=== PATIENT | male | born 1990 | race Hispanic/Latino ===

== ENCOUNTER 2017-08-23 01:54 | Inpatient (IN) | payer SELFPAY ==
[~2017-08-23] VITALS: Ht 167.6 cm; Wt 0.0 kg
[~2017-08-23 01:54] MED LIST: NO; PAROXETINE20 MG PO; PHENERGAN25 MG/TAB PO
--- NOTE | 2017-08-23 02:03 | NUR ---
PATIENT AMBULATORY TO TREATMENT AREA AND TO BATHROOM FOR URINE SAMPLE. PATIENT UNDRESSED INTO9 A GOWN. AWAITING MD RIVERA.
[2017-08-23 02:27] LABS: HEMATOCRIT 43.7 % (39.0-50.0); HEMOGLOBIN 15.2 g/dl (14.0-18.0); IMMATURE GRANULOCYTES 0.4 % (0.0-1.0); MEAN CELL VOLUME 84.9 fL CALC (80.0-100.0); MEAN CORPUSCULAR HGB 29.5 pG CALC (26.0-32.0); MEAN CORPUSCULAR HGB CONC 34.8 g/L CALC (32.0-36.0); NEUT# 8.17 thou/uL (1.82-7.42); RED BLOOD COUNT 5.15 mill/uL (4.70-6.10); RED CELL DISTRI WIDTH 12.2 % (11.5-15.5); URINE BILIRUBIN - DIPSTICK NEGATIVE (NEGATIVE); URINE BLOOD DIPSTICK NEGATIVE (NEGATIVE); URINE CLARITY SLIGHT CLOUDY; URINE COLOR YELLOW; URINE GLUCOSE - DIPSTICK NEGATIVE (NEGATIVE); URINE KETONE NEGATIVE (NEGATIVE); URINE LEUK ESTERASE NEGATIVE (NEGATIVE); URINE NITRITE - DIPSTICK NEGATIVE (Negative); URINE PROTEIN - DIPSTICK NEGATIVE (NEG-TRACE); URINE UROBILINOGEN - DIPSTICK 0.2 E.U./dL (0.2)
--- NOTE | 2017-08-23 02:40 | NUR ---
PATIENT MEDICATED ORDERED. WILL MONITOR FOR EFFECT.
[2017-08-23 02:45] LABS: ALBUMIN 4.5 g/dL (3.2-5.0); ALKALINE PHOSPHATASE 148 u/l (38-126); ANION GAP 16 (6-22 (CALC)); BILIRUBIN, TOTAL 0.8 mg/dL (0.0-1.4); BUN 13 mg/dL (9-20); BUN/CREATININE RATIO 16 (12-20 (CALC)); CALCIUM 9.6 mg/dL (8.4-10.2); CARBON DIOXIDE 25 mmol/l (22-30); CHLORIDE 107 mmol/l (95-108); CREATININE 0.8 mg/dL (0.7-1.3); GFR > 60 ML/MIN (>=60 (CALC)); GFR FOR AFR.AMER. > 60 ML/MIN (>=60 (CALC)); GLUCOSE 103 mg/dL (75-110); POTASSIUM 3.9 mmol/l (3.5-5.1); SGOT/AST 44 u/l (17-59); SGPT/ALT 74 u/l (21-72); SODIUM 144 mmol/l (137-146); TOTAL PROTEIN 7.6 g/dL (6.3-8.2)
[2017-08-23 03:02] LABS: AMYLASE 1458 u/l (30-110); LIPASE 15086 u/l (23-300)
--- NOTE | 2017-08-23 03:10 | NUR ---
PATIENT STATES PAIN IS IMPROVED. RATES A 5 ON 1-10 PAIN SCALE. AWARE OF PENDING CAT SCAN.
--- NOTE | 2017-08-23 04:07 | NUR ---
MD AT BEDSIDE TO DISCUSS ALL RESULTS AND PLANS TO ADMIT TO THE HOSPITAL. SUHAIL VERBALIZES UNDERSTANDING.
--- NOTE | 2017-08-23 04:34 | NUR ---
ADDITIONAL IVF HUNG. PATIENT STATES PAIN HAS RETURNED. AWARE OF PLANS TO ADMIT. AWAITING MED ORDERS TO BE VERIFIED AND ROOM ASSIGNMENT.
--- NOTE | 2017-08-23 04:58 | NUR ---
PATIENT MEDICATED ADDITIONALLY FOR PAIN. REPORT ATTEMPTED, NURSE UNAVAILABLE. WILL CALL BACK.
--- NOTE | 2017-08-23 05:09 | NUR ---
REPORT GIVEN TO OMKAR. PATIENT READIED FOR TRANSPORT TO FLOOR, ON MONITOR, WITH RN.
--- NOTE | 2017-08-23 05:15 | NUR ---
PT TO ROOM 272 VIA STRETCHER ACCOMPANIED BY TAYLA CRUZ.
--- NOTE | 2017-08-23 05:20 | NUR ---
PT SITTING UP IN BED. RESP ARE EVEN AND UNLABORED. NO DISTRESS NOTED. PT IS ALERT AND ORIENTED X3. PERRLA. LUNGS ARE CLEAR. HR REGULAR. TELE IN PLACE. NO EDEMA NOTED. PULSES PALPABLE THROUGHOUT. BS ACTIVE. PT REPORTS A BM YESTERDAY EVENING THAT WAS NORMAL. #20 LAC WITH 2ND LITER OF BOLUS FLUIDS GOING. 3RD LITER STILL PENDING. NO REDNESS OR EDEMA NOTED AT IV SITE. WILL CONTINUE TO MONITOR.
--- NOTE | 2017-08-23 05:49 | NUR ---
3RD LITER OF BOLUS FLUIDS INFUSING NOW. NO REDNESS OR EDEMA NOTED AT SITE. WILL CONTINUE TO MONITOR
--- NOTE | 2017-08-23 07:34 | NUR ---
PT.IN BED AWAKE, C/O 5/10 PAIN, PT.WAS TREATED W/DILAUDID AT 0455. DENIES ANY FURTHER NEEDS AT THIS TIME. V/S ASSESSED AND NEW FLUIDS ADMINISTERED. FAMILY AT BS ALONG W/CALL LIGHT AND BST.
[2017-08-23 07:36] VITALS: BP 104/69
--- NOTE | 2017-08-23 10:06 | NUR ---
PT.ASSESSED AND MEDICATED FOR PAIN AND AM MEDICATIONS. PT.REPORTS FEELING DIZZY WHEN HE GETS UP. PAIN IS REPORTED TO BE IN LEFT UPPER FLANK. LOCX4, NEURO'S INTACT, SMALL NORMAL BM THIS AM REPORTED. NO EDEMA OR SKIN ISSUES. FAMILY AT BS AND CALL LIGHT W/IN REACH. PT.INSTRUCTED TO CALL IF HE NEEDS TO GET UP DUE TO DIZZINESS, HE VERABALLY EXPRESSED UNDERSTANDING.
[2017-08-23 12:02] LABS: AMYLASE 1357 u/l (30-110)
[2017-08-23 12:04] LABS: LIPASE 7384 u/l (23-300)
[2017-08-23 15:20] VITALS: BP 107/63
--- NOTE | 2017-08-23 15:57 | NUR ---
PT.IN BED W/FAMILY AT BS WATCHING TV. PT.UP TO RESTROOM AMBULATED WELL, DENIES ANY DIZZINESS AT THIS TIME. PT.REPORTS PAIN 5/10 AND IS ASKING FOR PAIN MEDICATION/WILL PROVIDE. IV FLUIDS ADMINISTERED, CALL LIGHT W/IN REACH AT THIS TIME
--- NOTE | 2017-08-23 16:13 | NUR ---
PT.MEDICATED FOR PAIN 04/19
[2017-08-23 20:10] VITALS: BP 127/77
--- NOTE | 2017-08-23 20:56 | NUR ---
PT. RESTING IN BED IN NO DISTRESS. AWAKE, ALERT, OREINTED X 3. SKIN WARM AND DRY. AFEBRILE. IV FLUIDS INFUSING WITHOUT SX OF INFILTRATION OR EXTRAVASATION. LARGE NUMBER OF FAMILY MEMBERS AT BEDSIDE AT THIS TIME. PT. MODERATE EDUCATION PROVIDED REGARDING PANCREATITIS, DIETARY LIMITATIONS, AND CONTINUED NEED FOR NPO STATUS. PT. STATES WITH 7/10 PAIN AT THIS TIME. WILL MEDICATE PER ORDERS. WILL CONTINUE TO ASSESS. CALL LIGHT REMAINS WITHIN REACH.
--- NOTE | 2017-08-23 22:14 | NUR ---
REPORT FROM ANTHONY MELGOZA. ASSUMED PT. CARE.
--- NOTE | 2017-08-23 22:17 | NUR ---
PT. FOUND SLEEPING ON LT. SIDE AT THIS TIME. NO DISTRESS. A COUPLE OF FAMILY MEMBERS REMAIN AT BEDSIDE AT THIS TIME. WILL CONTINUE TO MONITOR.
[2017-08-23 23:50] VITALS: BP 104/61
--- NOTE | 2017-08-24 00:13 | NUR ---
PT. RESTING IN BED IN NO DISTRESS. 2 FAMILY MEMBERS REMAIN AT BEDSIDE. CALL LIGHT REMAINS WITHIN REACH. IV FLUIDS CHANGED AT THIS TIME. PT. STATES PAIN IS TOLERABLE AT 3/10 AT THIS TIME. CALL LIGHT REMAINS WITHIN REACH.
--- NOTE | 2017-08-24 03:52 | NUR ---
PT. RESTING ON SIDE IN NO DISTRESS. IV FLUIDS CONTINUE TO INFUSE WITHOUT SX OF INFILTRATION OR EXTRAVASATION. FAMILY REMAINS AT BEDSIDE. REPS EVEN AND UNLABORED. SKIN WARM AND DRY. NO DISTRESS.
[2017-08-24 04:45] VITALS: BP 111/66
[2017-08-24 06:09] LABS: HEMOGLOBIN 13.9 g/dl (14.0-18.0); IMMATURE GRANULOCYTES 0.2 % (0.0-1.0); MEAN CELL VOLUME 84.6 fL CALC (80.0-100.0); MEAN CORPUSCULAR HGB 29.4 pG CALC (26.0-32.0); MEAN CORPUSCULAR HGB CONC 34.8 g/L CALC (32.0-36.0); NEUT# 6.22 thou/uL (1.82-7.42); RED BLOOD COUNT 4.73 mill/uL (4.70-6.10)
[2017-08-24 06:25] LABS: ALBUMIN 3.8 g/dL (3.2-5.0); ALKALINE PHOSPHATASE 119 u/l (38-126); AMYLASE 1040 u/l (30-110); ANION GAP 13 (6-22 (CALC)); BILIRUBIN, TOTAL 0.9 mg/dL (0.0-1.4); BUN 7 mg/dL (9-20); BUN/CREATININE RATIO 10 (12-20 (CALC)); CALCIUM 9.1 mg/dL (8.4-10.2); CARBON DIOXIDE 25 mmol/l (22-30); CHLORIDE 107 mmol/l (95-108); CREATININE 0.7 mg/dL (0.7-1.3); GFR > 60 ML/MIN (>=60 (CALC)); GFR FOR AFR.AMER. > 60 ML/MIN (>=60 (CALC)); GLUCOSE 84 mg/dL (75-110); POTASSIUM 3.8 mmol/l (3.5-5.1); SGOT/AST 29 u/l (17-59); SGPT/ALT 55 u/l (21-72); SODIUM 141 mmol/l (137-146); TOTAL PROTEIN 6.5 g/dL (6.3-8.2)
--- NOTE | 2017-08-24 07:10 | NUR ---
BS REPORT RECEIVED FROM NIGHT NURSE. PT.IS UP IN RESTROOM, DENIES ANY NEEDS AT THIS TIME. FAMILY IS AT BS. INSTRUCTED TO CALL IF ANY NEEDS ARISE.
[2017-08-24] MEDS ORDERED: PROTONIX40 M2 PO (09:05)
[2017-08-24] MEDS ORDERED: LORTAB 10-325 M1 TAB PO (09:06)
[2017-08-24 09:08] VITALS: BP 112/53
--- NOTE | 2017-08-24 09:28 | NUR ---
PT.MEDICATED W/AM MEDICATIONS, DIET HAS BEEN CHANGED TO CLEAR LIQUID SO PT.WAS PROVIDED W/WATER AT THIS TIME, WILL FOLLOW-UP/PROGRESS DIET W/CLEAR LIQUID OPTIONS TOLERATED. PT.REPORTS FEELING "MUCH BETTER." IV FLUIDS ARE RUNNING AT 80MLS/HR. DENIES ANY OTHER NEEDS AT THIS TIME. FAMILY AT BS.
--- NOTE | 2017-08-24 12:12 | NUR ---
PT.DISCHARGED, DEVICE REPAIR TECHNICIAN REMOVED, IV SITE REMOVED INTACT/APPEARS HEALTHY. PT.IS FINISHING LUNCH, TAKING A SHOWER BEFORE HE LEAVES. FAMILY AT BS
== END 2017-08-24 12:50 | disposition home or self-care (01) | DRG 440 ==
LOC: ED 01:54 → ED-I 03:30 → ED 04:24 → MS2 04:25
PROVIDERS: Emergency Medicine; ADMIT Internal Medicine; ATTEND Internal Medicine
DX: K85.20 Alcohol induced acute pancreatitis without necrosis or infection (principal); Z72.89 Other problems related to lifestyle
CPT/HCPCS: S0164